=== PATIENT | female | born 1970 | race Caucasian/White ===

== ENCOUNTER → 2019-07-05 | Outpatient (CLI) | payer OTHER ==
--- NOTE | 2019-07-05 12:38 | RADIOLOGY REPORT (SQ) ---
EXAM DESCRIPTION: KNEE RIGHT 3 VIEWS COMPLETED DATE/TIME: 07/05/2019 12:23 pm REASON FOR STUDY: W10.1XXA FALL (ON)(FROM) SIDEWALK CURB, INITIAL ENCOUNTER, S80.01XA CONTUSI W10.1X XA FALL (ON)(FROM) SIDEWALK CURB, INITIAL ENCOUNTER S80.01XA CONTUSION OF RIGHT KNEE, INITIAL ENCOU NTER COMPARISON: None. NUMBER OF VIEWS: Three views. TECHNIQUE: AP, lateral, and sunrise patella radiographic images acquired of the right knee. LIMITATIONS: None. FINDINGS: MINERALIZATION: Normal. BONES: No acute fracture or dislocation. No worrisome bone lesions. JOINT: Mild joint space narrowing in all compartments. SOFT TISSUES: Varicosities noted within the soft tissues. OTHER: No other significant finding. IMPRESSION: Degenerative changes. No acute findings. TECHNICAL DOCUMENTATION: JOB ID: [id number] 2010 [employer]- All Rights Reserved Reading location - IP/workstation name: [email or web address]
== END ==
LOC: RAD 11:48
PROVIDERS: ATTEND Physician Assistant
DX: S80.01XA Contusion of right knee, initial encounter (principal); W10.1XXA Fall (on)(from) sidewalk curb, initial encounter